=== PATIENT | female | born 1975 | race Hispanic/Latino ===

== ENCOUNTER 2016-05-30 05:10 | Emergency (ER) | payer OTHER ==
[~2016-05-30] VITALS: Ht 170.2 cm; Wt 108.9 kg
[~2016-05-30 05:10] MED LIST: AUGMENTIN 875-1 EACH PO; IBUPROFEN800 M1 PO; NASONEX17 GM NASB; TRAMADOL HCL50 M1 PO
--- NOTE | 2016-05-30 05:28 | ED GENERAL ADULT ---
History of Present Illness General Chief Complaint: General Adult Stated Complaint: BACK PAIN, FEVER, BODY ACHES, NAUSEA, CP PER PT Source: patient Exam Limitations: no limitations Vital Signs & Intake/Output Vital Signs & Intake/Output Vital Signs Date Time Temp Pulse Resp B/P Pulse O2 O2 Flow FiO2 Ox Delivery Rate 05/30 0539 97 Room Air Room Air 05/30 528 100.8 120 20 128/85 96 Room Air Allergies Coded Allergies: No Known Allergies (11/10/15) Reconcile Medications Amoxicillin/Potassium Clav (Augmentin 875-125 Tablet) 875 MG-125 MG TABLET 1 TAB PO BID sinusitis Ibuprofen 800 MG TABLET 1 TAB PO TID PRN PAIN/FEVER Ibuprofen 800 MG TABLET 1 TAB PO Q8 PRN PAIN Mometasone Furoate (Nasonex) 50 MCG SPRAY.PUMP 2 SPRAY NASB DAILY rhinitis Oseltamivir Phosphate (Tamiflu) 75 MG CAPSULE 1 CAP PO BID INFLUENZA Tramadol HCl 50 MG TABLET 1-2 TAB PO Q6 PRN pain Triage Nurses Notes Reviewed? yes HPI: Patient is a 40 year old lady who came to the ED with fever, coughing and body pain that started yesterday, also reports nausea but not vomiting, no SOB. she also reported watery diarrhea since yesterday. she took nyquil and advil which did not improve her symptoms. Patient does not have any PMh, except for recurrent sinusitis and headache, denies sick contacts, recent travels, reports she has not gotten the flu shot this season. patient has had tubal ligation and denies possibility of being . (OVIDIO DUTTA MD) Past History Travel History Traveled to [place] past 21 day No Medical History Any Pertinent Medical History? see below for history Neurological: NONE EENT: NONE Cardiovascular: NONE Respiratory: asthma Gastrointestinal: NONE Hepatic: NONE Renal: NONE Musculoskeletal: NONE Psychiatric: NONE Endocrine: NONE Blood Disorders: NONE Cancer(s): NONE Surgical History Surgical History: Psychosocial History What is your primary language [place] Family History Hx Contributory? No (OVIDIO DUTTA MD) Review of Systems Review of Systems Constitutional: Reports: chills, fever, malaise. EENTM: Reports: eye tearing, nasal congestion. Denies: visual changes, throat pain. Respiratory: Reports: cough. Denies: short of breath, sputum production, wheezing. Cardiovascular: Denies: chest pain, peripheral edema. GI: Reports: diarrhea, nausea. Denies: abdominal pain, vomiting. Genitourinary: Reports: no symptoms. Musculoskeletal: Reports: see HPI (myalgia). Skin: Reports: no symptoms. Neurological/Psychological: Reports: no symptoms. Hematologic/Endocrine: Reports: no symptoms. (OVIDIO DUTTA MD) Physical Exam Physical Exam General Appearance: well developed/nourished, alert, awake, comfortable, mild distress Head: atraumatic, normal appearance Eyes: Bilateral: PERRL, EOMI. Ears, Nose, Throat: normal pharynx, normal ENT inspection Neck: normal inspection, supple, full range of motion Respiratory: normal breath sounds, chest non-tender, no respiratory distress, quiet respiration Cardiovascular: regular rate/rhythm Peripheral Pulses: 2+ radial (R), 2+ radial (L) Gastrointestinal: normal bowel sounds, soft, non-tender Back: normal inspection, normal range of motion, tenderness on palpation on the ribs and the hips as well as the arms Extremities: normal inspection, normal capillary refill, normal range of motion, no edema Neurologic/Psych: no motor/sensory deficits, awake, alert, oriented x 3 Skin: intact, normal color, warm/dry Core Measures ACS in differential dx? No CVA/TIA Diagnosis: No Severe Sepsis Present: No Septic Shock Present: No (OVIDIO DUTTA MD) Progress Differential Diagnoses I considered the following diagnoses in my evaluation of the patient: [influenza , viral upper respiratory tract infection, sinusitis, gasteroenteritis] Plan of Care: Orders Procedure Date/time Status RAPID VIRAL INFLUENZA A 05/30 536 Complete EKG 05/30 512 Active Initial ED EKG: none (OVIDIO DUTTA MD) Departure Departure Time of Disposition: 0600 Disposition: HOME OR SELF CARE Condition: Stable Clinical Impression Primary Impression: Influenza A Referrals: PATIENT HAS NO PRIMARY CARE DR (PCP/Family) Additional Instructions: Please come back to the ED if your symptoms worsen. Take Tamiflu and Ibuprofen as instructed. Departure Forms: Customer Survey General Discharge Information Prescriptions: Current Visit Scripts Ibuprofen 1 TAB PO TID PRN PAIN/FEVER #60 TAB Oseltamivir Phosphate (Tamiflu) 1 CAP PO BID #10 CAP (OVIDIO DUTTA MD) Resident Co-Sign Statement Statement: ED Attending supervision documentation- [x] I saw and evaluated the patient. I have also reviewed all the pertinent lab results and diagnostic results. I agree with the findings and the plan of care as documented in the Resident's documentation. pt reports myalgias, exam otherwise benign, influenza a positive. pt given rx for tamiflu. encouraged close follow up. [] I have reviewed the ED Record and agree with the Resident's documentation. [] Additions or exceptions (if any) to the Resident's note and plan are summarized below: [] (ZABRINA HAM,TAM Belle) Critical Care Note Critical Care Note Critical Care Time: non-applicable (OVIDIO DUTTA MD) ED Attending Observation Initial Observation Note: I have seen and personally examined SWETHA RAJAN on 05/30/16 at 0633. I agree with the current emergency department documentation. The disposition (admission or discharge) is uncertain at this time, she needs a period of observation for the following reason(s): The ED Nurse caring for this patient has been personally informed as to what the patient is being observed for. (OVIDIO DUTTA MD)
[2016-05-30 05:29] VITALS: BP 128/85
[2016-05-30] MEDS ORDERED: IBUPROFEN800 M1 PO (06:04)
[2016-05-30] MEDS ORDERED: TAMIFLU75 M1 PO (06:04)
== END 2016-05-30 06:17 ==
LOC: ERH 05:10
DX: J09.X2 Influenza due to identified novel influenza A virus with other respiratory manifestations (principal)
CPT/HCPCS: 87804; 87804-59